=== PATIENT | female | born 1960 | race Caucasian/White ===

== ENCOUNTER 2017-04-13 09:25 | Emergency (ER) | payer BC ==
[2017-04-13 09:39] VITALS: BP 103/58; PULSE 55; TEMP 98; BMI 28.3
--- NOTE | 2017-04-13 09:55 | PDOC ---
History of Present Illness - General Chief Complaint: Injury Stated Complaint: LEFT ANKLE PAIN Time Seen by Provider: 04/13/17 09:49 - History of Present Illness Initial Comments: 04/13/17 09:51 Chief complaint: Left ankle injury History of present illness: Pain and swelling left lateral ankle, inversion injury last night, ambulating with a mild limp. No distal numbness tingling pain or weakness. No prior sprains or fractures of note Review of systems: As above. In addition, no other injuries. No fall. Specifically, no head neck or other extremity injury Past medical, social, family history reviewed and noncontributory Physical exam: Alert and oriented well-developed well-nourished no acute distress cheerful and cooperative Afebrile, vital signs stable Left ankle: No deformity. No abrasion or laceration. Swelling and tenderness over the lateral and anterior ligaments. Tenderness over the medial and lateral malleoli. No fifth metatarsal tenderness. No instability. Pulses full. No distal sensory or motor deficits. No other injuries to the foot, calf, knee, thigh, or hip Impression: Sprain, rule out fracture Plan: X-ray and further orthopedic management depending on results. Past History - Past Medical History Allergies/Adverse Reactions: Allergies Allergy/AdvReac Type Severity Reaction Status Date / Time iodine Allergy Severe Itching Verified 03/15/16 09:32 shellfish derived Allergy Severe SWELLING,ITCHING,RASH,"HAIRBALL Verified 09:32 FEELING IN THROAT" omeprazole [From Prilosec] Allergy "EXPLOSIVE Verified 03/15/16 09:32 DIARRHEA,RASH" omeprazole magnesium Allergy "EXPLOSIVE Verified 03/15/16 09:32 [From Prilosec] DIARRHEA,RASH" PECANS Allergy Severe MOUTH/GUMS Uncoded 03/15/16 09:32 ITCHY,SWELLING ANCHOVIES Allergy "RASH" Uncoded 03/15/16 09:32 SALMON Allergy "EYELIDS Uncoded 03/15/16 09:32 SWELL" Home Medications: Ambulatory Orders NK [No Known Home Medication] 04/13/17 Anemia: No Asthma: No Cancer: Yes (BASAL CELL ON LIP 2007) Cardiac Disorders: No CVA: No COPD: No CHF: No Dementia: No Diabetes: No GI Disorders: Yes (OCCASSIONAL HEARTBURN,IBS) Disorders: No HTN: No Hypercholesterolemia: No Liver Disease: (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) Seizures: No Thyroid Disease: No - Surgical History Abdominal Surgery: No Appendectomy: No Cardiac Surgery: No Cholecystectomy: Yes (2016) Lung Surgery: No Neurologic Surgery: No Orthopedic Surgery: Yes (SHOULDER SURGERY-DECOMPRESSION) - Psycho/Social/Smoking Cessation Hx Anxiety: No Suicidal Ideation: No Smoking History: Never smoked Have you smoked in the past 12 months: No Hx Alcohol Use: No Drug/Substance Use Hx: No Substance Use Type: None Hx Substance Use Treatment: No *Physical Exam - Vital Signs Last Vital Signs Temp Pulse Resp BP Pulse Ox 98.0 F 55 L 15 103/58 96 04/13/17 09:31 04/13/17 09:31 04/13/17 09:31 04/13/17 09:31 04/13/17 09:31 Medical Decision Making - Medical Decision Making 04/13/17 10:40 X-ray reviewed: There is a nondisplaced hairline fracture of the distal fibula. The ankle mortise is intact. There is soft tissue swelling but no other abnormalities of the bone. Compression wrap with an Gurvinder bandage. Aircast applied. Patient was more comfortable, there was no distal numbness or tingling and good toe movement, good pulses and good capillary refill. Partial weightbearing, rest ice elevation and Motrin, and follow-up with orthopedist Dr. Villalta in 2-3 days. Patient adequately ambulatory and in no significant pain or other distress upon discharge to follow-up as directed. *DC/Admit/Observation/Transfer Diagnosis at time of Disposition: Fracture of distal end of fibula Qualifiers: Encounter type: initial encounter Fracture type: closed Fracture morphology: other fracture Laterality: left Qualified Code(s): S82.832A - Other fracture of upper and lower end of left fibula, initial encounter for closed fracture - Discharge Dispostion Disposition: HOME Condition at time of disposition: Improved Admit: No - Referrals Referrals: Sharath Villalta MD [Staff Physician] - 3 days - Patient Instructions Printed Discharge Instructions: DI for Ankle Fracture Additional Instructions: Rest ice and elevate Motrin or Aleve. Limited standing and nonweightbearing until consultation with orthopedist. See Dr. Villalta in 2-3 days for further evaluation and treatment.
== END 2017-04-13 11:32 | disposition home or self-care (01) ==
LOC: FER 09:25
DX: S82.832A Other fracture of upper and lower end of left fibula, initial encounter for closed fracture (principal); X58.XXXA Exposure to other specified factors, initial encounter; Y93.9 Activity, unspecified; Y92.9 Unspecified place or not applicable; Z85.828 Personal history of other malignant neoplasm of skin; K58.9 Irritable bowel syndrome, unspecified
CPT/HCPCS: 73610-TC-LT; 99281-25

== ENCOUNTER 2017-12-12 06:57 | Day surgery (SDC) | payer BC ==
[2017-12-10 08:45] VITALS: BMI 29.2
[2017-12-12] MEDS ORDERED: ROPIVACAINE HCL 0.5% 30ML VIAL ONE (08:16)
[2017-12-12] MEDS ORDERED: DEXAMETHASONE SOD PHOSPHATE/PF 10 MG/ML SDV ONE (08:16)
[2017-12-12] MEDS ORDERED: MIDAZOLAM HCL 2 MG/2 ML SINGLE DOSE VIAL ONE (08:16)
[2017-12-12] MEDS ORDERED: EPINEPHrine 1:1,000 1 MG/1 ML - 30ML VIAL (INJECTION) ONE (08:33)
[2017-12-12] MEDS ORDERED: LIDOCAINE HCL/PF 2% SDV 5ML VIAL ONE (08:40)
[2017-12-12] MEDS ORDERED: PROPOFOL 20 ML ONE (08:40)
[2017-12-12] MEDS ORDERED: ceFAZolin SODIUM 1 GM VIAL ONE (09:00)
[2017-12-12] MEDS ORDERED: ePHEDrine SULFATE 50 MG/1 ML AMPULE ONE (09:07)
[2017-12-12 11:59] VITALS: TEMP 97.9
--- NOTE | 2017-12-12 12:29 | OP ---
DATE OF OPERATION: 12/12/2017 PREOPERATIVE DIAGNOSES: 1. Right shoulder impingement. 2. Right shoulder adhesive capsulitis. . 3. Right shoulder partial-thickness rotator cuff tear/tendinosis. OPERATIVE PROCEDURES: 1. Right shoulder extensive glenohumeral joint and rotator cuff debridement. 2. Right shoulder capsulectomy and release of adhesive capsulitis. 3. Right shoulder arthroscopic subacromial decompression with anterior-inferior acromioplasty. SURGEON: Luis Alberto Morel MD WEAPONS DESIGNER: ROSY Hoffman ANESTHESIA: Regional. COMPLICATIONS: None. ESTIMATED BLOOD LOSS: Minimal. INDICATIONS FOR PROCEDURE: The patient is a 57-year-old female with the above findings, indicated for operative treatment. The risks, benefits, and alternatives were discussed with the patient at length, and proper informed consent was obtained. DESCRIPTION OF PROCEDURE: After proper identification of the patient and the correct operative site, patient was brought to the operating room, placed on the table with all bony prominences well padded. Regional anesthesia was given along with sedation. She was then placed in the beach-chair position with all points of contact well padded. An in-line cervical position was maintained throughout the procedure. Examination under anesthesia showed significant restriction in her range of motion with forward elevation to 150 degrees, external rotation to 30 degrees, and internal rotation to 30 degrees. The right upper extremity was prepped and draped in usual sterile fashion. Arthroscopy was then performed. This was performed through posterior, lateral, and anterior portals. All portals were made with skin incision, all made with blunt dissection down to the joint capsule. Glenohumeral joint was observed and found to be quite tight with significant scarring of the anterior capsule. Subscapularis was intact. Biceps tendon was intact. The biceps tendon was brought into the joint from the external portion and found to be free of any tearing. Partial-thickness tearing, less than 50%, was found in the anterior 1/3 of the supraspinatus tendon and mild tendinosis was found for the remainder of the rotator cuff. This was debrided. Extensive synovitis of the glenohumeral joint was also found, and this was also debrided with the mechanical shaver. Mild fraying of the labrum was found and this was debrided with the mechanical shaver. No loose bodies were found in the axillary pouch. Capsular release was then performed in the anterior aspect of the shoulder taking care to protect the subscapularis. Care was taken to not go too low to avoid the axillary nerve. Once this was performed, full range of motion was able to be achieved of the shoulder. Arthroscope was then introduced into the subacromial space, where significant bursitis was found, and significant tendinosis of the supraspinatus and infraspinatus was noted. There was a very thick coracoacromial arch and a large anterior-inferior subacromial spur. A bursectomy was performed. The coracoacromial arch was divided and an anterior-inferior acromioplasty was performed. Once this was accomplished, there was no further impingement on the rotator cuff. Tendinosis was debrided with a mechanical shaver. Wound was then irrigated with copious amounts of normal saline. Confirmation of complete range of motion was again checked. No full-thickness rotator cuff tears were noted. Arthroscope was removed from the shoulder. Irrigation was performed. Wounds were repaired with 5-0 nylon sutures. Sterile dressings, ice machine, and sling were placed. Patient was reversed from sedation and brought to the recovery room in stable condition. She tolerated the procedure well. Parish Wills, the human services assistant, was integral throughout this procedure. The procedure could not have been performed without a skilled operative human services assistant. LUIS ALBERTO MOREL M.D. [id number]
[2017-12-12 12:31] VITALS: BP 110/67; PULSE 74
== END 2017-12-12 12:25 | disposition home or self-care (01) ==
LOC: FASU 06:57
PROVIDERS: ATTEND Orthopaedic Surgery Hand Surgery
PROC: 0RBJ4ZZ Excision of Right Shoulder Joint, Percutaneous Endoscopic Approach (ICD-10-PCS; 2017-12-12)
PROC: 0LB14ZZ Excision of Right Shoulder Tendon, Percutaneous Endoscopic Approach (ICD-10-PCS; principal; 2017-12-12 09:11)
PROC: 0RNJ4ZZ Release Right Shoulder Joint, Percutaneous Endoscopic Approach (ICD-10-PCS; 2017-12-12 09:11)
DX: M75.101 Unspecified rotator cuff tear or rupture of right shoulder, not specified as traumatic (principal); M75.41 Impingement syndrome of right shoulder; M75.01 Adhesive capsulitis of right shoulder
CPT/HCPCS: 94760